=== PATIENT | female | born 1970 | race African-American/Black ===

== ENCOUNTER 2017-07-19 00:13 | Observation (INO) | payer MEDICAID ==
[~2017-07-19] VITALS: Ht 180.3 cm; Wt 78.0 kg
[2017-07-19 00:24] VITALS: BP 157/97; PULSE 71; RESP 16; TEMP 97.5; O2SAT 100
[2017-07-19] MEDS ORDERED: KETOROLAC TROMETHAMINE 60 MG/2 ML (IM) VIAL IM ONE (02:00)
--- NOTE | 2017-07-19 02:12 | PD ---
HPI Chief Complaint: Abdominal Pain Time Seen by Provider: 01:14 Travel History International Travel<30 days: No Contact w/Intl Traveler<30days: No Traveled to known affect area: No History of Present Illness HPI Patient is a 47-year-old female who is having periumbilical inner umbilicus pain for the last day she denies constipation she denies nausea vomiting no protrusion of any bowel from her umbilicus she has a history of having tubal ligation to her umbilicus years ago but nothing recently and no other abdomen surgery she thought maybe she was having dysuria with frequency but she is been increasing her her water intake and therefore that is why she thinks she is urinating more frequently denies burning no flank pain no diarrhea no nausea vomiting just localized pain does not radiate his right inside the umbilicus worse with touching it also aggravated by sitting up PFSH Past Medical History Immunizations Current: Yes Tetanus Vaccination: Unknown Influenza Vaccination: No ?: Unknown Social History Alcohol Use: No Tobacco Use: No Substance Use: No Allergies-Medications (Allergen,Severity, Reaction): Coded Allergies: penicillin V (Verified Allergy, Severe, Anaphylaxis, 07/19/17) codeine (Verified Allergy, Intermediate, Rash, 07/19/17) Reported Meds & Prescriptions Reported Meds & Active Scripts Active Percocet (Oxycodone-Acetaminophen) 10-325 mg Tab 1 Tab PO Q6H PRN Reported Gabapentin 300 Mg Cap 300 Mg PO TID Percocet (Oxycodone-Acetaminophen) 10-325 mg Tab 1 Tab PO Q6H PRN Review of Systems Except as stated in HPI: all other systems reviewed are Neg Gastrointestinal: Positive: Abdominal Pain Physical Exam Narrative General : mild distress over abdo pain umbilicus SKIN: Warm and dry. HEAD: Atraumatic. Normocephalic. EYES: Pupils equal and round. No scleral icterus. No injection or drainage. ENT: No nasal bleeding or discharge. Mucous membranes pink and moist. NECK: Trachea midline. No JVD. CARDIOVASCULAR: Regular rate and rhythm. RESPIRATORY: No accessory muscle use. Clear to auscultation. Breath sounds equal bilaterally. GASTROINTESTINAL: Abdomen Point tenderness in umbilicus has severe pain reaction to palpation soft, NO hard incarcerated lump felt, nondistended. MUSCULOSKELETAL: Extremities without clubbing, cyanosis, or edema. No obvious deformities. NEUROLOGICAL: Awake and alert. No obvious cranial nerve deficits. Motor grossly within normal limits. Five out of 5 muscle strength in the arms and legs. Normal speech. PSYCHIATRIC: Appropriate mood and affect; insight and judgment normal. Data Data Last Documented VS Vital Signs Date Time Temp Pulse Resp B/P (MAP) Pulse Ox O2 Delivery O2 Flow Rate FiO2 07/19/17 00:24 97.5 71 16 157/97 (117) 100 Orders Orders Abdomen, Flat & Upright (07/19/17 ) Urinalysis - C+S If Indicated (07/19/17 01:49) Ketorolac Inj (Toradol Inj) (07/19/17 02:00) Sodium Chlor 0.9% 1000 Ml Inj (Ns 1000 M (07/19/17 03:00) Ct Abd/Pel W Iv Contrast(Rout) (07/19/17 ) Diatrizoate Liq ( Gastroview Liq) (07/19/17 03:00) Complete Blood Count With Diff (07/19/17 02:50) Comprehensive Metabolic Panel (07/19/17 02:50) Lipase (07/19/17 02:50) Oral Contrast - Adult (07/19/17 02:52) Iohexol 350 Inj (Omnipaque 350 Inj) (07/19/17 05:15) Admit Order (Ed Use Only) (07/19/17 07:21) Vital Signs (Adult) ARISTIDES.Q4H (07/19/17 07:21) Dext 5%-Nacl 0.9% 500 Ml Inj (D5w-Ns 500 (07/19/17 07:30) Morphine Inj (Morphine Inj) (07/19/17 07:30) Labs Laboratory Tests Test 07/19/17 01:55 07/19/17 03:10 Urine Color COLORLESS Urine Turbidity CLEAR Urine pH 5.5 Urine Specific [place] 1.002 Urine Protein NEG mg/dL Urine Glucose (UA) NEG mg/dL Urine Ketones NEG mg/dL Urine Occult Blood NEG Urine Nitrite NEG Urine Bilirubin NEG Urine Urobilinogen LESS THAN 2.0 MG/DL Urine Leukocyte Esterase NEG Urine RBC LESS THAN 1 /hpf Urine WBC LESS THAN 1 /hpf Urine Squamous Epithelial Cells 1 /hpf Microscopic Urinalysis Comment CULT NOT INDICATED White Blood Count 5.6 TH/MM3 Red Blood Count 4.18 MIL/MM3 Hemoglobin 14.4 GM/DL Hematocrit 39.0 % Mean Corpuscular Volume 93.4 FL Mean Corpuscular Hemoglobin 34.5 PG Mean Corpuscular Hemoglobin Concent 36.9 % Red Cell Distribution Width 13.8 % Platelet Count 315 TH/MM3 Mean Platelet Volume 9.4 FL Neutrophils (%) (Auto) 51.6 % Lymphocytes (%) (Auto) 35.5 % Monocytes (%) (Auto) 6.1 % Eosinophils (%) (Auto) 5.8 % Basophils (%) (Auto) 1.0 % Neutrophils # (Auto) 2.9 TH/MM3 Lymphocytes # (Auto) 2.0 TH/MM3 Monocytes # (Auto) 0.3 TH/MM3 Eosinophils # (Auto) 0.3 TH/MM3 Basophils # (Auto) 0.1 TH/MM3 CBC Comment AUTO DIFF Differential Comment AUTO DIFF CONFIRMED Blood Urea Nitrogen 12 MG/DL Creatinine 1.10 MG/DL Random Glucose 82 MG/DL Total Protein 9.3 GM/DL Albumin 4.2 GM/DL Calcium Level 9.0 MG/DL Alkaline Phosphatase 90 U/L Aspartate Amino Transf (AST/SGOT) 44 U/L Alanine Aminotransferase (ALT/SGPT) 32 U/L Total Bilirubin 0.5 MG/DL Sodium Level 138 MEQ/L Potassium Level 4.4 MEQ/L Chloride Level 103 MEQ/L Carbon Dioxide Level 25.3 MEQ/L Anion Gap 10 MEQ/L Estimat Glomerular Filtration Rate 64 ML/MIN Lipase 131 U/L MDM Medical Decision Making Medical Screen Exam Complete: Yes Emergency Medical Condition: Yes Differential Diagnosis abdo pain from pancreatitis vs GB disease vs hernia , vs muscle strain , vs adenitis . other colitis appendicitis early Narrative Course Patient has a small loop of bowel in the periumbilical hernia is reducible patient still having mild discomfort but there is no sign of incarceration or entrapment I will discharge her with medication and Dr. Leyva Latrell surgical follow-up for elective possible surgical repair of the hernia Physician Communication Physician Communication Spoke to surgeon Nalini he will admit and do repair today in OR pt now NPO Diagnosis Primary Impression: Umbilical hernia Qualified Codes: K42.9 - Umbilical hernia without obstruction or gangrene Admitting Information Admitting Physician Requests: Observation Scripts Oxycodone-Acetaminophen (Percocet) 10-325 mg Tab 1 TAB PO Q6H Y for PAIN, #20 TAB 0 Refills Prov: Delbert Gayle MD 07/19/17 Gordon Kaur MD Jul 19, 2017 02:12
--- NOTE | 2017-07-19 02:21 | RADRPT ---
EXAM DATE/TIME: 07/19/2017 01:56 [facility] COMPARISON: No previous studies available for comparison. INDICATIONS : Lower quadrant abdominal pain. MEDICAL HISTORY : None. SURGICAL HISTORY : None. ENCOUNTER: Initial ACUITY: 1 day PAIN SCORE: 10/10 LOCATION: Bilateral lower quadrant FINDINGS: Supine and upright views of the abdomen were performed. The abdominal bowel gas pattern is normal. No air fluid levels are seen. No abnormal masses, calcifications, or organomegaly is seen. The visu alized lower lungs are clear. No evidence of free intraperitoneal gas. Multiple calcified phlebolit hs in the left pelvis. Mild curvature of the lumbar spine convex towards the right. CONCLUSION: Benign abdomen. Eric Young MD on July 19, 2017 at 2:18 Board Certified Radiologist. This report was verified electronically.
[2017-07-19 02:23] LABS: BILIRUBIN, URINE NEG (NEG); BLOOD, URINE NEG (NEG); GLUCOSE,URINE NEG (NEG); KETONE, URINE NEG (NEG); NITRITE,URINE NEG (NEG); PH, URINE 5.5 (5.0-8.5); SQUAMOUS EPITHELIAL CELL URINE 1 /hpf (0-5); URINE COLOR COLORLESS (YELLW/STRAW); URINE LEUKOCYTE ESTERASE NEG (NEG)
[2017-07-19] MEDS ORDERED: SODIUM CHLOR 0.9% 1000 ML INJ 1,000 ML IV ONE (03:00)
[2017-07-19] MEDS ORDERED: DIATRIZOATE MEGLUM/DIATRIZOATE SOD 9 ML CUP PO ONE (03:00)
[2017-07-19 03:18] LABS: AUTOMATED NEUTROPHIL # 2.9 TH/MM3 (1.8-7.7); BASOPHIL # 0.1 TH/MM3 (0-0.2); EOSINOPHIL # 0.3 TH/MM3 (0-0.4); EOSINOPHIL % 5.8 % (0.0-4.0); HEMOGLOBIN 14.4 GM/DL (11.6-15.3); LYMPH % 35.5 % (9.0-44.0); MEAN CELL VOLUME 93.4 FL (80.0-100.0); MEAN CORPUSCULAR HEMOGLOBIN 34.5 PG (27.0-34.0); MEAN PLATELET VOLUME 9.4 FL (7.0-11.0); MONO % 6.1 % (0.0-8.0); MONOCYTE # 0.3 TH/MM3 (0-0.9); NEUT % 51.6 % (16.0-70.0); PLATELET COUNT 315 TH/MM3 (150-450); RED BLOOD COUNT 4.18 MIL/MM3 (4.00-5.30); RED CELL DISTRIBUTION WIDTH 13.8 % (11.6-17.2); WHITE BLOOD COUNT 5.6 TH/MM3 (4.0-11.0)
[2017-07-19 03:22] LABS: MEAN CORPUSCULAR HGB CONC 36.9 % (32.0-36.0)
[2017-07-19 03:37] LABS: ALKALINE PHOSPHATASE 90 U/L (45-117); TOTAL BILIRUBIN ADULT 0.5 MG/DL (0.2-1.0); TOTAL PROTEIN 9.3 GM/DL (6.4-8.2)
[2017-07-19 03:40] LABS: ALBUMIN 4.2 GM/DL (3.4-5.0); ALT (GPT) 32 U/L (10-53); AST (GOT) 44 U/L (15-37); BICARBONATE 25.3 MEQ/L (21.0-32.0); BLOOD UREA NITROGEN 12 MG/DL (7-18); CHLORIDE 103 MEQ/L (98-107); GLOMERULAR FILTRATION RATE 64 ML/MIN (>89); GLUCOSE,RANDOM 82 MG/DL (74-106); SODIUM (NA) 138 MEQ/L (136-145)
[2017-07-19] MEDS ORDERED: IOHEXOL 350 MG/ML 10 ML VIAL (for RAD DIAG) IVCONTRAST ONE (05:15)
--- NOTE | 2017-07-19 06:06 | RADRPT ---
EXAM DATE/TIME: 07/19/2017 05:05 [facility] COMPARISON: No previous studies available for comparison. INDICATIONS : Periumbilical abdominal pain. IV CONTRAST: 100 cc Omnipaque 350 (iohexol) IV ORAL CONTRAST: Prescribed oral contrast ingested. RADIATION DOSE: 7.01 CTDIvol (mGy) MEDICAL HISTORY : None SURGICAL HISTORY : Tubal ligation. ENCOUNTER: Initial ACUITY: 1 day PAIN SCALE: 8/10 LOCATION: Periumbilical TECHNIQUE: Volumetric scanning of the abdomen and pelvis was performed. Using automated exposure control and ad justment of the mA and/or kV according to patient size, radiation dose was kept as low as reasonably achievable to obtain optimal diagnostic quality images. DICOM format image data is available electro nically for review and comparison. FINDINGS: LOWER LUNGS: The visualized lower lungs are clear. LIVER: Homogeneous density without lesion. There is no dilation of the biliary tree. No calcified gallston es. SPLEEN: Normal size without lesion. PANCREAS: Within normal limits. KIDNEYS: Normal in size and shape. There is no mass, stone or hydronephrosis. ADRENAL GLANDS: Within normal limits. VASCULAR: There is no aortic aneurysm. BOWEL/MESENTERY: No dilated loops of small or large bowel. Oral contrast passes through to the splenic flexure. Ther e is some mild induration of the fat about the proximal sigmoid colon. This is best seen on axial im age #75 and coronal image #42. No evidence of free fluid. No evidence of free intraperitoneal gas. ABDOMINAL WALL: There is a small umbilical hernia containing a loop of bowel. Separation between the rectus muscles measures 3.5 cm. RETROPERITONEUM: There is no lymphadenopathy. BLADDER: No wall thickening or mass. REPRODUCTIVE: Within normal limits. INGUINAL: There is no lymphadenopathy or hernia. MUSCULOSKELETAL: Within normal limits for patient age. CONCLUSION: 1. Small area of mild fatty induration adjacent to the proximal sigmoid colon suggesting focal inflam matory process, differential considerations include diverticulitis and epiploic appendicitis. No dane inable fluid collections no evidence of free fluid. 2. Small umbilical hernia which does contain a loop of bowel. Eric Young MD on July 19, 2017 at 5:57 Board Certified Radiologist. This report was verified electronically.
[2017-07-19] MEDS ORDERED: DEXT 5%-NACL 0.9% 500 ML INJ 500 ML IV ONE (07:30)
[2017-07-19] MEDS ORDERED: MORPHINE SULFATE 4 MG/ML INJ IV PUSH PRN (07:30)
[2017-07-19 08:57] VITALS: BP 132/75; PULSE 60; RESP 18; O2SAT 99
[2017-07-19 09:54] VITALS: BP 134/70; TEMP 98.2
[2017-07-19] MEDS ORDERED: GABA300C5 PO (10:36)
[2017-07-19] MEDS ORDERED: PERC10TA27 PO ×2 (10:36→19:35)
[2017-07-19] MEDS: SODIUM CHLOR 0.9% 1000 ML INJ 1,000 ML IV SCH ×3 (11:35→19:51)
[2017-07-19] MEDS ORDERED: METOCLOPRAMIDE HCL 10 MG/2 ML VIAL IV PUSH PRN (11:45)
[2017-07-19] MEDS ORDERED: metroNIDAZOLE 500 MG INJ 100 ML IV SCH (11:45)
[2017-07-19] MEDS ORDERED: SODIUM CHLORIDE 0.9% FLUSH 10 ML FLUSH IV FLUSH PRN (11:45)
--- NOTE | 2017-07-19 11:49 | HHI.HP ---
cc: Delbert Gayle MD [facility] Service CONSULTATION NOTE FOR SURGICAL ATTENDING, DR. DELBERT GAYLE General Surgery Primary Care Physician Unknown Admission Diagnosis umbilical hernia Chief Complaint: Abdominal pain History of Present Illness This is a 47 year female with a history of neck pain who presented to the ED overnight with complaints of abdominal pain. The patient denies any nausea or vomiting. Her last bowel movement was yesterday which was loose. She denies any sick contacts. She denies any recent travel. She had a CT abdomen/pelvis which is concerned for a small umbilical hernia that contains a small loop of bowel. She was given IV pain medications that dulled the pain some. She is still quite uncomfortable. She takes Gabapentin and Percocet prescribed by Pain Management for her chronic neck pain. A General Surgery consultation has been requested. Review of Systems Constitutional: DENIES: Fatigue, Change in appetite Endocrine: DENIES: Heat/cold intolerance, Polydipsia Eyes: DENIES: Diplopia Ears, nose, mouth, throat: DENIES: Tinnitus Respiratory: DENIES: Apneas Cardiovascular: DENIES: Chest pain Gastrointestinal: COMPLAINS OF: Abdominal pain, DENIES: Nausea, Vomiting Genitourinary: DENIES: Urinary frequency Musculoskeletal: DENIES: Joint pain Integumentary: DENIES: Abnormal pigmentation Hematologic/lymphatic: DENIES: Bruising Immunologic/allergic: DENIES: Eczema Neurologic: DENIES: Abnormal gait, Headache Psychiatric: DENIES: Confusion, Mood changes, Depression Past Family Social History Past Medical History Chronic neck pain Past Surgical History Neck surgery Tubal ligation Reported Medications Gabapentin Percocet Allergies: Coded Allergies: penicillin V (Verified Allergy, Severe, Anaphylaxis, 07/19/17) codeine (Verified Allergy, Intermediate, Rash, 07/19/17) Active Ordered Medications Current Medications Medications (Trade) Dose Ordered Sig/[place] Route Start Time Stop Time Status Last Admin (Morphine Inj) 2 mg Q3H PRN IV PUSH 07/19/17 07:30 Family History Noncontributory Social History Denies tobacco use Denies ETOH use Denies illicit drug use She lives here locally. Physical Exam Vital Signs Vital Signs Date Time Temp Pulse Resp B/P (MAP) Pulse Ox O2 Delivery O2 Flow Rate FiO2 07/19/17 10:30 98.0 56 16 123/85 (98) 100 07/19/17 09:54 98.2 62 18 134/70 (91) 99 07/19/17 08:57 60 18 132/75 (94) 99 Room Air 07/19/17 00:24 97.5 71 16 157/97 (117) 100 Physical Exam GENERAL: 47 year old female resting in bed in no acute distress. SKIN: Warm and dry. Multiple tattoos on chest and abdomen. HEAD: Atraumatic. Normocephalic. EYES: Pupils equal and round. No scleral icterus. No injection or drainage. ENT: No nasal bleeding or discharge. Mucous membranes pink and moist. NECK: Trachea midline. CARDIOVASCULAR: Regular rate and rhythm. RESPIRATORY: No accessory muscle use. Clear to auscultation. Breath sounds equal bilaterally. GASTROINTESTINAL: Abdomen soft, non distended; tender at umbilicus and superior to that with palpation. + guarding. Small well healed incision at umbilicus. MUSCULOSKELETAL: Extremities without clubbing, cyanosis, or edema. No obvious deformities. NEUROLOGICAL: Awake and alert. No obvious cranial nerve deficits. Motor grossly within normal limits. Five out of 5 muscle strength in the arms and legs. Normal speech. PSYCHIATRIC: Appropriate mood and affect; insight and judgment normal. Laboratory Laboratory Tests Test 07/19/17 01:55 07/19/17 03:10 Urine Color COLORLESS Urine Turbidity CLEAR Urine pH 5.5 Urine Specific [place] 1.002 Urine Protein NEG Urine Glucose (UA) NEG Urine Ketones NEG Urine Occult Blood NEG Urine Nitrite NEG Urine Bilirubin NEG Urine Urobilinogen LESS THAN 2.0 Urine Leukocyte Esterase NEG Urine RBC LESS THAN 1 Urine WBC LESS THAN 1 Urine Squamous Epithelial Cells 1 Microscopic Urinalysis Comment CULT NOT INDICATED White Blood Count 5.6 Red Blood Count 4.18 Hemoglobin 14.4 Hematocrit 39.0 Mean Corpuscular Volume 93.4 Mean Corpuscular Hemoglobin 34.5 Mean Corpuscular Hemoglobin Concent 36.9 Red Cell Distribution Width 13.8 Platelet Count 315 Mean Platelet Volume 9.4 Neutrophils (%) (Auto) 51.6 Lymphocytes (%) (Auto) 35.5 Monocytes (%) (Auto) 6.1 Eosinophils (%) (Auto) 5.8 Basophils (%) (Auto) 1.0 Neutrophils # (Auto) 2.9 Lymphocytes # (Auto) 2.0 Monocytes # (Auto) 0.3 Eosinophils # (Auto) 0.3 Basophils # (Auto) 0.1 CBC Comment AUTO DIFF Differential Comment AUTO DIFF CONFIRMED Blood Urea Nitrogen 12 Creatinine 1.10 Random Glucose 82 Total Protein 9.3 Albumin 4.2 Calcium Level 9.0 Alkaline Phosphatase 90 Aspartate Amino Transf (AST/SGOT) 44 Alanine Aminotransferase (ALT/SGPT) 32 Total Bilirubin 0.5 Sodium Level 138 Potassium Level 4.4 Chloride Level 103 Carbon Dioxide Level 25.3 Anion Gap 10 Estimat Glomerular Filtration Rate 64 Lipase 131 Result Diagram: 07/19/17 0310 07/19/17 0310 Imaging Last 48 hours Impressions Abdomen/Pelvis CT 07/19/17 0000 Signed Impressions: Service Date/Time: June 05:05 - CONCLUSION: 1. Small area of mild fatty induration adjacent to the proximal sigmoid colon suggesting focal inflammatory process, differential considerations include diverticulitis and epiploic appendicitis. No drainable fluid collections no evidence of free fluid. 2. Small umbilical hernia which does contain a loop of bowel. Eric Young MD Abdomen X-Ray 07/19/17 0000 Signed Impressions: Service Date/Time: June 01:56 - CONCLUSION: Benign abdomen. MD Nury Spaulding VTE Risk Assessment Nury VTE Risk Assessment: No/Low Risk (score <= 1) VTE Pharm Contraindication: Going to OR today Caprini Risk Assessment Model Point Value = 1 Point Value = 2 Point Value = 3 Point Value = 5 Age 41-60 Minor surgery BMI > 25 kg/m2 Swollen legs Varicose veins or History of unexplained or recurrent spontaneous Oral contraceptives or hormone replacement Sepsis (< 1 month) Serious lung disease, including pneumonia (< 1 month) Abnormal pulmonary function Acute myocardial infarction Congestive heart failure (< 1 month) History of inflammatory bowel disease Medical patient at bed rest Age 61-74 Arthroscopic surgery Major open surgery (> 45 min) Laparoscopic surgery (> 45 min) Malignancy Confined to bed (> 72 hours) Immobilizing plaster cast Central venous access Age >= 75 History of VTE Family history of VTE Factor V Leiden Prothrombin [id number] Lupus anticoagulant Anticardiolipin antibodies Elevated serum homocysteine Heparin-induced thrombocytopenia Other congenital or acquired thrombophilia Stroke (< 1 month) Elective arthroplasty Hip, pelvis, or leg fracture Acute spinal cord injury (< 1 month) Prophylaxis Regimen Total Risk Factor Score Risk Level Prophylaxis Regimen 0-1 Low Early ambulation 2 Moderate Order ONE of the following: *Sequential Compression Device (SCD) *Heparin 5000 units SQ BID 3-4 Higher Order ONE of the following medications: *Heparin 5000 units SQ TID *Enoxaparin/Lovenox 40 mg SQ daily (WT < 150 kg, CrCl > 30 mL/min) *Enoxaparin/Lovenox 30 mg SQ daily (WT < 150 kg, CrCl > 10-29 mL/min) *Enoxaparin/Lovenox 30 mg SQ BID (WT < 150 kg, CrCl > 30 mL/min) AND/OR *Sequential Compression Device (SCD) 5 or more Highest Order ONE of the following medications: *Heparin 5000 units SQ TID (Preferred with Epidurals) *Enoxaparin/Lovenox 40 mg SQ daily (WT < 150 kg, CrCl > 30 mL/min) *Enoxaparin/Lovenox 30 mg SQ daily (WT < 150 kg, CrCl > 10-29 mL/min) *Enoxaparin/Lovenox 30 mg SQ BID (WT < 150 kg, CrCl > 30 mL/min) AND *Sequential Compression Device (SCD) Assessment and Plan Problem List: (1) Umbilical hernia ICD Codes: K42.9 - Umbilical hernia without obstruction or gangrene Status: Acute (2) Abdominal pain ICD Codes: R10.9 - Unspecified abdominal pain Status: Acute Assessment and Plan 47 year old female with abdominal pain; reducible umbilical hernia -NPO -Obtain consents for umbilical hernia repair today -IVF -Post op antibiotics -Procedure explained and questions answer Discussed Condition With Dr. Nalini Oconnell Problem Qualifiers (1) Umbilical hernia: Qualified Codes: K42.9 - Umbilical hernia without obstruction or gangrene Mireya Lange/Broke Handler LACTATION SPECIALIST Jul 19, 2017 11:49 Delbert Gayle MD Jul 19, 2017 16:56
[2017-07-19] MEDS ORDERED: LEVOFLOXACIN 500 MG PREMIX INJ 100 ML IV SCH (13:00)
[2017-07-19] MEDS ORDERED: BUPIVACAINE/EPINEPHRINE 0.25% 50 ML VIAL ONE (15:25)
[2017-07-19] MEDS ORDERED: LIDOCAINE 1%/EPINEPHrine 1:100,000 SOLN 30 ML VIAL ONE (18:25)
[2017-07-19] MEDS ORDERED: BUPIVACAINE/EPINEPHRINE 0.5% PF 30 ML VIAL ONE (18:26)
[2017-07-19] MEDS ORDERED: FAMOTIDINE 20 MG/2 ML VIAL ONE (19:11)
[2017-07-19] MEDS ORDERED: fentaNYL CITRATE 250 MCG/5 ML AMP ONE (19:11)
[2017-07-19] MEDS ORDERED: ONDANSETRON HCL 4 MG/2 ML VIAL ONE (19:11)
--- NOTE | 2017-07-19 19:28 | HHI.PR ---
cc: Delbert Gayle MD Immediate Post Op Note Procedure Date: Jul 19, 2017 Pre Op Diagnosis: (1) Umbilical hernia (2) Abdominal pain Post Op Diagnosis: (1) Umbilical hernia (2) Abdominal pain Surgeon: Delbert Gayle Winding Rack Operator(s): Please refer to OR record Procedure: Repair of incarcerated umbilical hernia Findings: Incarcerated umbilical hernia Estimated blood loss: Minimal Anesthesia: General Drains: None IVF Patient to: PACU Patient Condition: Good Implant/Devices: SEE IMPLANT LOG (if applicable) Date/Time of Procedure: SEE SURGICAL CARE RECORD Delbert Gayle MD Jul 19, 2017 19:28
[2017-07-19] MEDS ORDERED: oxyCODONE/ACETAMINOPHEN 10 MG/325 MG TAB PO PRN (19:30)
[2017-07-19] MEDS ORDERED: ACETAMINOPHEN/HYDROcodone 325 MG/5 MG TAB PO PRN (19:30)
--- NOTE | 2017-07-19 19:34 | HHI.DS ---
Discharge Summary Admission Date Jul 19, 2017 at 07:27 Discharge Date: Jul 21, 2017 Admitting Diagnosis ponv umbilical hernia Procedures umbilical hernia repair CBC/BMP: 07/19/17 0310 07/19/17 0310 Significant Findings Laboratory Tests Test 07/19/17 01:55 07/19/17 03:10 Mean Corpuscular Hemoglobin 34.5 PG (27.0-34.0) Mean Corpuscular Hemoglobin Concent 36.9 % (32.0-36.0) Eosinophils (%) (Auto) 5.8 % (0.0-4.0) Creatinine 1.10 MG/DL (0.50-1.00) Total Protein 9.3 GM/DL (6.4-8.2) Aspartate Amino Transf (AST/SGOT) 44 U/L (15-37) Estimat Glomerular Filtration Rate 64 ML/MIN (>89) Pt Condition on Discharge: Good Discharge Disposition: Discharge Home Discharge Instructions DIET: Follow Instructions for: As Tolerated, No Restrictions Activities you can perform: Shower Only-No Bath, See Additionl Instruction Activities to avoid: Concussion Sports, Contact Sports, Lifting/Bending, Weight Bearing, Prolonged Standing, Strenuous Activity, Bathing, Driving Follow up Referrals: Surgical - 07/30/17 with Delbert Gayle MD Appt set for July 30 at 2:20PM New Medications: Oxycodone-Acetaminophen (Percocet) 10-325 mg Tab 1 TAB PO Q6H PRN for PAIN, #20 TAB 0 Refills Continued Medications: Gabapentin (Gabapentin) 300 Mg Cap 300 MG PO TID, CAP 0 Refills Oxycodone-Acetaminophen (Percocet) 10-325 mg Tab 1 TAB PO Q6H PRN for PAIN, TAB 0 Refills Delbert Gayle MD Jul 19, 2017 19:34
[2017-07-19] MEDS ORDERED: *morphine SULFATE 4 MG/ML PERIprocedure ONLY ONE (19:44)
[2017-07-19] MEDS ORDERED: HYDROmorphone HCL PF 2 MG/ML VIAL IV PUSH PRN (19:45)
[2017-07-19] MEDS ORDERED: *MEPERIDINE 25 MG INJ VIAL PERIprocedural Use ONLY ONE (19:53)
[2017-07-19] MEDS ORDERED: DO NOT ADM ANY ANTICOAGULANT DRUGS PRN (20:00)
--- NOTE | 2017-07-19 20:08 | MP ---
cc: Delbert Gayle MD DATE OF OPERATION: 07/19/2017 DATE OF PROCEDURE: 07/19/2017 PREOPERATIVE DIAGNOSIS: Incarcerated umbilical hernia. POSTOPERATIVE DIAGNOSIS: Incarcerated umbilical hernia. PROCEDURE PERFORMED: Repair of umbilical hernia, incarcerated. ANESTHESIA: General. SURGEON: Delbert Gayle MD INDICATIONS FOR PROCEDURE: The patient is a pleasant lady who came to the Emergency Department having severe pain in her umbilicus. She had had a previous tubal and had incarcerated omentum in the hernia at the umbilicus. I suspect this is either umbilical hernia or incisional umbilical hernia that is incarcerated from her previous surgery. DETAILS OF PROCEDURE: The patient was taken to the operating room, placed in supine position, and after anesthesia, her abdomen was prepped with Betadine. She was given preoperative antibiotics. We make an elliptical incision overlying just above the umbilicus where the hernia appears to be most prominent. She has some scar tissue from an old umbilical ring that she no longer uses. This is ellipsed out. We dissect down through the subcutaneous fascia, identifying the hernia defect. We have to enlarge the defect slightly to be able to reduce the preperitoneal fat. Some of this is removed. We then are able to get circumferentially around the defect. It measures about a 1.5 cm. We are able to reapproximate it in a horizontal fashion by reapproximating the defect using a 0 Ethibond suture. Once it is completely closed, we then reapproximate the deep layer with 3-0 Vicryl and skin was closed with 4-0 Vicryl. Steri-Strips are applied, a sterile bandage was applied. The patient tolerated the procedure well, had no immediate postop complication. We did use about 20 mL of Marcaine with epinephrine for postop pain control as well. Delbert Gayle MD JDB/MARKY , 07:46 PM , 08:07 PM
[2017-07-19] MEDS ORDERED: HYDROmorphone HCL PF 2 MG/ML VIAL ONE (20:36)
[2017-07-19] MEDS: SODIUM CHLORIDE 0.9% FLUSH 10 ML FLUSH IV FLUSH SCH (21:00)
[2017-07-19 21:01] VITALS: BP 158/88; PULSE 68; RESP 16; TEMP 96.2; O2SAT 95
[2017-07-20 00:21] VITALS: BP 144/93; PULSE 66; RESP 17; TEMP 96.8; O2SAT 96
[2017-07-20 04:00] VITALS: BP 134/86; PULSE 68; RESP 18; TEMP 96.4; O2SAT 96
[2017-07-20] MEDS: SODIUM CHLOR 0.9% 1000 ML INJ 1,000 ML IV SCH ×3 (04:39→20:06)
[2017-07-20 08:00] VITALS: BP 131/81; PULSE 97; RESP 18; TEMP 97.6; O2SAT 96
[2017-07-20] MEDS ORDERED: ONDANSETRON HCL 4 MG/2 ML VIAL IV PUSH PRN (09:15)
[2017-07-20] MEDS: SODIUM CHLORIDE 0.9% FLUSH 10 ML FLUSH IV FLUSH SCH ×2 (09:42→20:01)
[2017-07-20] MEDS: PANTOPRAZOLE SODIUM 40 MG VIAL IV PUSH SCH (09:42)
[2017-07-20 12:00] VITALS: BP 158/84; PULSE 68; RESP 18; TEMP 97.8; O2SAT 99
[2017-07-20] MEDS: ONDANSETRON HCL 4 MG/2 ML VIAL IV PUSH PRN ×3 (13:51→23:36)
--- NOTE | 2017-07-20 15:59 | HHI.PR ---
cc: Trisha Anderson MD Subjective Subjective Notes Resting in bed C/o nausea Objective Vitals/I&O Vital Signs Date Time Temp Pulse Resp B/P (MAP) Pulse Ox O2 Delivery O2 Flow Rate FiO2 07/20/17 12:00 97.8 68 18 158/84 (108) 99 07/19/17 20:15 Room Air Radiology Last 48 hours Impressions Abdomen/Pelvis CT 07/19/17 0000 Signed Impressions: Service Date/Time: June 05:05 - CONCLUSION: 1. Small area of mild fatty induration adjacent to the proximal sigmoid colon suggesting focal inflammatory process, differential considerations include diverticulitis and epiploic appendicitis. No drainable fluid collections no evidence of free fluid. 2. Small umbilical hernia which does contain a loop of bowel. Eric Young MD Abdomen X-Ray 07/19/17 0000 Signed Impressions: Service Date/Time: June 01:56 - CONCLUSION: Benign abdomen. Eric Young MD Cardiovascular: Regular Lungs: Clear Abdomen: Other (dressing in place with mild bloody drainage; abdominal binder in place ) Extremities: No edema A/P Problem List: (1) S/P umbilical hernia repair, follow-up exam ICD Codes: Z09 - Encounter for follow-up examination after completed treatment for conditions other than malignant neoplasm Status: Acute (2) PONV (postoperative nausea and vomiting) ICD Codes: R11.2 - Nausea with vomiting, unspecified; Z98.890 - Other specified postprocedural states Status: Acute (3) Umbilical hernia ICD Codes: K42.9 - Umbilical hernia without obstruction or gangrene Status: Acute (4) Abdominal pain ICD Codes: R10.9 - Unspecified abdominal pain Status: Acute Assessment and Plan 47 year old female POD1 primary umbilical hernia repair -Post op nausea; Zofran available -Pain control -Diet as tolerated -OOB and mobilize Attending Statement NOTE FOR SURGICAL ATTENDING, DR. TRISHA ANDERSON I agree with above assessment and plan. The exam, history, and the medical decision-making described in the above note were completed with the assistance of the mid-level provider. I reviewed and agree with the findings presented. I attest that I had a [id number] encounter with the patient on the same day, and personally performed and documented my assessment and findings in the medical record. The following services were provided during this hospital visit: Chart data review, vital sign assessments/reviewing monitor data Review of consultations notes if present. Medication orders/review and/or management Ordering and/or reviewing lab tests Ordering and/or interpreting/reviewing x-rays and/or diagnostic studies Care of the patient and discussion of the patient with the care team Documentation time To help prompt me to consider important information that might be impacting today's encounter and assessment, information from prior notes written by myself or my colleagues may have been "brought forward/copy and pasted" into today's note. Problem Qualifiers (1) Umbilical hernia: Qualified Codes: K42.9 - Umbilical hernia without obstruction or gangrene Mireya LangeP/Event Operations Manager [employer] Jul 20, 2017 15:59 Trisha Anderson MD Jul 20, 2017 17:24
[2017-07-20 16:00] VITALS: BP 138/85; PULSE 71; RESP 18; TEMP 98.5; O2SAT 99
[2017-07-20] MEDS ORDERED: ACETAMINOPHEN 1000 MG/100 ML 100 ML IV ONE (16:00)
[2017-07-20 20:00] VITALS: BP 148/79; PULSE 71; RESP 18; TEMP 97.9; O2SAT 98
[2017-07-21] VITALS: BP_SYST 131; BP_SYST 151; BP_DIAS 63; BP_DIAS 83; PULSE 73; PULSE 75; RESP 17; RESP 20; TEMP 97.7; TEMP 98.4; O2SAT 96; O2SAT 97
[2017-07-21] MEDS: SODIUM CHLOR 0.9% 1000 ML INJ 1,000 ML IV SCH ×3 (04:40→11:59)
[2017-07-21 07:22] LABS: BASOPHIL % 0.3 % (0.0-2.0); EOSINOPHIL % 0.4 % (0.0-4.0); HEMATOCRIT 34.1 % (35.0-46.0); HEMOGLOBIN 11.7 GM/DL (11.6-15.3); LYMPH % 17.5 % (9.0-44.0); LYMPHOCYTE # 1.9 TH/MM3 (1.0-4.8); MEAN CELL VOLUME 95.8 FL (80.0-100.0); MEAN CORPUSCULAR HEMOGLOBIN 32.9 PG (27.0-34.0); MEAN CORPUSCULAR HGB CONC 34.4 % (32.0-36.0); MEAN PLATELET VOLUME 9.7 FL (7.0-11.0); MONO % 6.5 % (0.0-8.0); MONOCYTE # 0.7 TH/MM3 (0-0.9); NEUT % 75.3 % (16.0-70.0); PLATELET COUNT 248 TH/MM3 (150-450); RED BLOOD COUNT 3.56 MIL/MM3 (4.00-5.30); RED CELL DISTRIBUTION WIDTH 13.6 % (11.6-17.2); WHITE BLOOD COUNT 10.7 TH/MM3 (4.0-11.0)
[2017-07-21 07:42] LABS: BICARBONATE 23.6 MEQ/L (21.0-32.0); CALCIUM 8.1 MG/DL (8.5-10.1); CREATININE 0.94 MG/DL (0.50-1.00)
[2017-07-21 08:00] VITALS: BP 137/92; PULSE 61; RESP 17; TEMP 98.1; O2SAT 99
[2017-07-21] MEDS: PANTOPRAZOLE SODIUM 40 MG VIAL IV PUSH SCH (09:00)
[2017-07-21] MEDS: SODIUM CHLORIDE 0.9% FLUSH 10 ML FLUSH IV FLUSH SCH (09:00)
[2017-07-21 12:00] VITALS: BP 123/78; PULSE 72; RESP 17; TEMP 98.3; O2SAT 99
--- NOTE | 2017-07-21 12:25 | HHI.PR ---
Subjective Subjective Notes Patient is up in a chair. She denies any further nausea. She has been tolerating a regular diet. She has been to the bathroom once. She desires discharge home. Objective Vitals/I&O Vital Signs Date Time Temp Pulse Resp B/P (MAP) Pulse Ox O2 Delivery O2 Flow Rate FiO2 07/21/17 12:00 98.3 72 17 123/78 (93) 99 07/19/17 20:15 Room Air Labs Laboratory Tests Test 07/21/17 06:00 07/21/17 06:40 Blood Urea Nitrogen 9 Creatinine 0.94 Random Glucose 97 Calcium Level 8.1 Sodium Level 141 Potassium Level 3.6 Chloride Level 109 Carbon Dioxide Level 23.6 Anion Gap 8 Estimat Glomerular Filtration Rate 77 White Blood Count 10.7 Red Blood Count 3.56 Hemoglobin 11.7 Hematocrit 34.1 Mean Corpuscular Volume 95.8 Mean Corpuscular Hemoglobin 32.9 Mean Corpuscular Hemoglobin Concent 34.4 Red Cell Distribution Width 13.6 Platelet Count 248 Mean Platelet Volume 9.7 Neutrophils (%) (Auto) 75.3 Lymphocytes (%) (Auto) 17.5 Monocytes (%) (Auto) 6.5 Eosinophils (%) (Auto) 0.4 Basophils (%) (Auto) 0.3 Neutrophils # (Auto) 8.0 Lymphocytes # (Auto) 1.9 Monocytes # (Auto) 0.7 Eosinophils # (Auto) 0.0 Basophils # (Auto) 0.0 CBC Comment DIFF FINAL Differential Comment Radiology Last 48 hours Impressions Abdomen/Pelvis CT 07/19/17 0000 Signed Impressions: Service Date/Time: June 05:05 - CONCLUSION: 1. Small area of mild fatty induration adjacent to the proximal sigmoid colon suggesting focal inflammatory process, differential considerations include diverticulitis and epiploic appendicitis. No drainable fluid collections no evidence of free fluid. 2. Small umbilical hernia which does contain a loop of bowel. Eric Young MD Abdomen X-Ray 07/19/17 0000 Signed Impressions: Service Date/Time: June 01:56 - CONCLUSION: Benign abdomen. Eric Young MD Abdomen: Non-distended, Non-tender, Other (Dressing intact. Minimal bloody drainage. Steri-Strips intact. No erythema.) Extremities: No edema A/P Problem List: (1) S/P umbilical hernia repair, follow-up exam ICD Codes: Z09 - Encounter for follow-up examination after completed treatment for conditions other than malignant neoplasm Status: Acute (2) PONV (postoperative nausea and vomiting) ICD Codes: R11.2 - Nausea with vomiting, unspecified; Z98.890 - Other specified postprocedural states Status: Acute (3) Umbilical hernia ICD Codes: K42.9 - Umbilical hernia without obstruction or gangrene Status: Acute (4) Abdominal pain ICD Codes: R10.9 - Unspecified abdominal pain Status: Acute Assessment and Plan Postop open repair umbilical hernia. Postoperative nausea and ileus resolved. Patient desires discharge. Discharge orders entered. Prescription for pain medication already on chart. Appropriate wound care instructions and follow-up discussed with the patient. Problem Qualifiers (1) Umbilical hernia: Qualified Codes: K42.9 - Umbilical hernia without obstruction or gangrene Lj Corado MD Jul 21, 2017 12:25
[2017-07-21] MEDS ORDERED: GLYCOPYRROLATE 1 MG/5 ML SYRINGE IV PUSH ONE (15:35)
[2017-07-21] MEDS ORDERED: DEXAMETHASONE SOD PHOS 4 MG/ML VIAL IV ONE (15:35)
[2017-07-21] MEDS ORDERED: ROCURONIUM INJ 50 MG/5 ML SYRINGE IV PUSH ONE (15:35)
[2017-07-21] MEDS ORDERED: PROPOFOL 200 MG/20 ML AMP IV ONE (15:35)
[2017-07-21] MEDS ORDERED: LIDOCAINE HCL 1% PF 5 ML SYRINGE OTHER ONE (15:35)
[2017-07-21] MEDS ORDERED: NEOSTIGMINE 5 MG/5 ML SYRINGE IV PUSH ONE (15:35)
[2017-07-21] MEDS ORDERED: ONDANSETRON HCL 4 MG/2 ML VIAL IV ONE (15:35)
== END 2017-07-21 15:36 | disposition home or self-care (01) ==
LOC: NEPE 00:13 → NEDA 07:27 → INTOOBSV 07:27 → N07A 20:53
PROVIDERS: ADMIT Surgery; ATTEND Surgery
DX: K42.0 Umbilical hernia with obstruction, without gangrene (principal)
CPT/HCPCS: 00750; 49587; 74019; 74177; 80048; 80053; 81001; 83690; 85025; 96361; 96365; 96366; 96372; 96375; 96376; 99285; C9113; G0378; J0131; J1100; J1170; J1885; J1956; J2175; J2270; J2405; J2710; J2765; J3010; J7030; J7042; Q9963; Q9967; 96360